=== PATIENT | male | born 2000 | race Caucasian/White ===

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

== ENCOUNTER → 2020-08-22 08:21 | Outpatient (CLI) | payer OTHER, SELFPAY ==
[2020-08-22 15:42] LABS: Urine N gonorrhoeae NOT DETECTED
[2020-08-22 16:12] LABS: Urine Chlamydia NOT DETECTED
== END ==
PROVIDERS: PCP Family Medicine; Referring Provider Family Medicine; Visit Provider Family Medicine
DX: Z11.3 Encounter for screening for infections with a predominantly sexual mode of transmission (principal)
CPT/HCPCS: 87491; 87591